=== PATIENT | female | born 1975 | race Caucasian/White ===

== ENCOUNTER 2017-05-25 07:17 | Emergency (ER) | payer OTHER ==
[~2017-05-25] VITALS: Ht 165.1 cm; Wt 55.0 kg
[2017-05-25 07:19] VITALS: BP 130/72
== END 2017-05-25 09:46 | disposition left against medical advice (07) ==
LOC: ER 07:35
DX: R51 Headache (principal); Z53.21 Procedure and treatment not carried out due to patient leaving prior to being seen by health care provider